=== PATIENT | female | born 1935 | race Caucasian/White ===

== ENCOUNTER 2017-11-18 14:22 | Emergency (ER) | payer MEDICARE, OTHER ==
[~2017-11-18] VITALS: Ht 162.6 cm; Wt 78.9 kg
[2017-11-18 15:34] LABS: CLARITY,URINE CLEAR (Clear); COLOR,URINE YELLOW (Yellow); GLUCOSE, URINE NEGATIVE (Neg); KETONES,URINE NEGATIVE (Neg); LEUKOCYTE ESTERASE ,URINE NEGATIVE (Neg); NITRITES, URINE NEGATIVE (Neg); OCCULT BLOOD,URINE SMALL (Neg); PROTEIN,URINE 100 mg/dl (Neg); UROBILINOGEN,URINE 0.2 E.U/dL (0.2-1.0)
[2017-11-18 15:49] LABS: UA COLLECTION TYPE CLN CATCH MIDSTREAM
[2017-11-18 15:50] LABS: BACTERIA,URINE NONE SEEN /HPF (Neg); MUCUS STRANDS NONE SEEN /LPF (Neg); RBC,URINE 0-2 /HPF (0-2); SQUAMOUS EPITHELIAL CELL,UR FEW /LPF (FEW)
[2017-11-18 16:55] LABS: BASOPHILS % (AUTO) 0 % (0-1); EOSINOPHILS # (AUTO) 0.2 X10'3 (0-0.9); EOSINOPHILS % (AUTO) 1.7 % (0-6); HEMATOCRIT 42.5 % (35.0-45.0); HEMOGLOBIN 13.9 g/dl (12.0-16.0); LYMPHOCYTES # (AUTO) 1.7 X10'3 (1.1-4.8); LYMPHOCYTES % (AUTO) 13.4 % (21-51); MEAN CORPUSCULAR HEMOGLOBIN 28.5 PG (27.0-31.0); MEAN CORPUSCULAR HGB CONC 32.7 % (33.0-36.5); MEAN CORPUSCULAR VOLUME 86.9 FL (78-98); MEAN PLATELET VOLUME 8.6 FL (7.4-10.4); MONOCYTES # (AUTO) 0.2 X10'3 (0-0.9); MONOCYTES % (AUTO) 1.8 % (2-12); NEUTROPHILS # (AUTO) 10.7 X10'3 (1.8-7.7); NEUTROPHILS % (AUTO) 83.1 % (42-75); PLATELET COUNT 295 X10'3 (140-440); RED BLOOD COUNT 4.89 X10'6 (4.20-5.60); RED CELL DISTRIBUTION WIDTH 14.4 % (11.5-14.5); WHITE BLOOD COUNT 12.8 X10'3 (4.5-11.0)
[2017-11-18 17:06] LABS: INR 0.9 INR; PARTIAL THROMBOPLASTIN TIME 24 SECONDS (22-32); PROTHROMBIN TIME 9.7 SECONDS (9.0-12.0)
[2017-11-18 17:10] LABS: ALANINE AMINOTRANSFERASE 30 U/L (12-78); ALBUMIN 3.8 G/DL (3.4-5.0); ALKALINE PHOSPHATASE 183 IU/L (46-116); ANION GAP 13 (8-16); ASPARTATE AMINO TRANSFERASE 16 U/L (10-37); BILIRUBIN,TOTAL 0.5 MG/DL (0.1-1.0); BLOOD UREA NITROGEN 35 MG/DL (7-18); BUN/CREATININE RATIO 19.8 (6.6-38.0); CALCIUM 9.4 MG/DL (8.5-10.1); CHLORIDE 106 MMOL/L (99-107); CREATININE 1.77 MG/DL (0.40-0.90); GLUCOSE 158 MG/DL (70-104); LIPASE 241 U/L (73-393); MAGNESIUM 1.8 MG/DL (1.5-2.4); POTASSIUM 4.8 MMOL/L (3.5-5.1); SODIUM 143 MMOL/L (135-145); TOTAL CARBON DIOXIDE 24.4 MMOL/L (24-32); TOTAL PROTEIN 7.6 G/DL (6.4-8.2); eGFR 28 ML/MIN
[2017-11-18] MEDS ORDERED: normal saline 1000ML IV soln IV ONE (19:40)
[2017-11-18 20:51] LABS: INR 0.9 INR; PARTIAL THROMBOPLASTIN TIME 24 SECONDS (22-32); PROTHROMBIN TIME 9.8 SECONDS (9.0-12.0)
[2017-11-18] MEDS: ondansetron/PF 4mg/2ml inj IV ONE ×2 (22:32→23:31)
[2017-11-18] MEDS ORDERED: BISA10SU60 RC (22:38)
[2017-11-18] MEDS ORDERED: MAGN296S50 PO (22:39)
[2017-11-18 23:32] VITALS: BP 133/73
== END 2017-11-18 23:35 | disposition home or self-care (01) ==
LOC: ER 14:23
DX: K59.00 Constipation, unspecified (principal); N13.2 Hydronephrosis with renal and ureteral calculous obstruction; N28.1 Cyst of kidney, acquired; K44.9 Diaphragmatic hernia without obstruction or gangrene; Z88.2 Allergy status to sulfonamides
CPT/HCPCS: 36415; 74176; 80053; 81001; 83605; 83690; 83735; 84145; 85025; 85610; 85730; 87040; 87088; 93005; 96361; 96374; 99285; J2405

== ENCOUNTER 2017-11-19 22:17 | Emergency (ER) | payer MEDICARE, OTHER ==
[~2017-11-19] VITALS: Ht 162.6 cm; Wt 82.7 kg
[~2017-11-19 22:17] MED LIST: BISA10SU60 RC; MAGN296S50 PO
[2017-11-19] MEDS ORDERED: bisacodyl 10mg suppository rectal RC ONE (23:40)
[2017-11-19] MEDS ORDERED: normal saline 1000ML IV soln IVB ONE (23:45)
[2017-11-20 03:09] VITALS: BP 136/64
[2017-11-20] MEDS ORDERED: normal saline 1000ML IV soln IVB ONE (04:05)
[2017-11-20] MEDS ORDERED: magnesium citrate 296ml oral solution PO ONE (04:05)
== END 2017-11-20 04:58 | disposition home or self-care (01) ==
LOC: ER 22:18
DX: K59.00 Constipation, unspecified (principal); I11.0 Hypertensive heart disease with heart failure; I50.9 Heart failure, unspecified; E11.9 Type 2 diabetes mellitus without complications; Z88.2 Allergy status to sulfonamides
CPT/HCPCS: 74018; 96360; 99284; J7030

== ENCOUNTER 2019-05-16 08:57 | Day surgery (SDC) | payer MEDICARE, OTHER ==
[2019-05-15 17:05] LABS: BASOPHILS % (AUTO) 0.2 % (0-1); EOSINOPHILS % (AUTO) 0.1 % (0-6); LYMPHOCYTES # (AUTO) 0.5 X10'3 (1.1-4.8); LYMPHOCYTES % (AUTO) 2.8 % (21-51); MEAN CORPUSCULAR HEMOGLOBIN 25.9 PG (27.0-31.0); MEAN CORPUSCULAR HGB CONC 31.1 g/dL (33.0-36.5); MEAN CORPUSCULAR VOLUME 83.2 FL (78-98); MEAN PLATELET VOLUME 8.7 FL (7.4-10.4); MONOCYTES # (AUTO) 0.3 X10'3 (0-0.9); MONOCYTES % (AUTO) 1.5 % (2-12); NEUTROPHILS # (AUTO) 17.1 X10'3 (1.8-7.7); NEUTROPHILS % (AUTO) 95.4 % (42-75); PRE OP HEMATOCRIT 36.3 % (35.0-45.0); PRE OP HEMOGLOBIN 11.3 g/dL (12.0-16.0); PRE OP PLATELET COUNT 297 X10'3 (140-440); RED BLOOD COUNT 4.37 X10'6 (4.20-5.60); RED CELL DISTRIBUTION WIDTH 17.2 % (11.5-14.5)
[2019-05-15 17:05] LABS: CLARITY,URINE CLOUDY (Clear); COLOR,URINE YELLOW (Yellow); GLUCOSE, URINE >=1000 mg/dl (Neg); KETONES,URINE NEGATIVE (Neg); LEUKOCYTE ESTERASE ,URINE SMALL (Neg); NITRITES, URINE NEGATIVE (Neg); OCCULT BLOOD,URINE LARGE (Neg); PROTEIN,URINE 30 mg/dl (Neg); UROBILINOGEN,URINE 0.2 E.U/dL (0.2-1.0)
[2019-05-15 17:18] LABS: ALBUMIN/GLOBULIN RATIO 0.9 (1.1-1.5); ALKALINE PHOSPHATASE 116 IU/L (46-116); BLOOD UREA NITROGEN 46 MG/DL (7-18); BUN/CREATININE RATIO 22.2 (6.6-38.0); CALCIUM 7.7 MG/DL (8.5-10.1); CHLORIDE 105 MMOL/L (99-107); CREATININE 2.07 MG/DL (0.40-0.90); PRE OP ALT 30 U/L (30-65); PRE OP ANION GAP 13 (8-16); PRE OP AST 10 U/L (10-37); PRE OP BILIRUB, TOTAL 0.3 MG/DL (0.0-1.0); PRE OP POTASSIUM 5.2 MMOL/L (3.4-5.1); PRE OP SODIUM 137 MMOL/L (135-145); TOTAL CARBON DIOXIDE 19.3 MMOL/L (24-32); TOTAL PROTEIN 6.2 G/DL (6.4-8.2); eGFR 23 ML/MIN
[2019-05-15 17:20] LABS: PRE OP GLUCOSE 443 MG/DL (70-104)
[2019-05-15 17:23] LABS: UA COLLECTION TYPE CLN CATCH MIDSTREAM
[2019-05-15 17:23] LABS: ANISOCYTOSIS 1+; PLATELET ESTIMATE NORMAL; TOTAL CELLS COUNTED 100
[2019-05-15 17:24] LABS: RBC,URINE 20-50 /HPF (0-2); WBC,URINE 20-30 /HPF (0-4)
[2019-05-15 17:25] LABS: BACTERIA,URINE 1+ /HPF (Neg); SQUAMOUS EPITHELIAL CELL,UR FEW /LPF (FEW)
[2019-05-15 17:26] LABS: HYALINE CASTS 0-3 /LPF (NEGATIVE)
[2019-05-15 17:27] LABS: WBC CLUMPS,URINE FEW /HPF (NEGATIVE)
[~2019-05-16] VITALS: Ht 162.6 cm; Wt 79.0 kg
[2019-05-16] VITALS (8 sets, daily range): BP systolic 136–155; BP diastolic 66–77
[~2019-05-16 08:57] MED LIST changes: +ALBU18HF2 INH; +AMLO5TAB16 PO; +ATOR40TA72 PO; -BISA10SU60 RC; +FLO44IN; +GLIP5TAB13 PO; +INSU100I8; +LANTUS SQ; +LIRA0.6P2 SQ; -MAGN296S50 PO; +MONT10TA24 PO; +PANT40TA4 PO; +PRED20TA PO; +UMEC1DIS INH
[2019-05-16] MEDS ORDERED: ringers solution, lacted 1,000 ML IV SCH ×2 (10:15→11:34)
[2019-05-16] MEDS ORDERED: cefazolin/dext.iso 2gm/100 ML IV ONE (10:15)
[2019-05-16] MEDS ORDERED: albuterol 2.5 MG/3 ML nebule NEB ONE (10:15)
[2019-05-16] MEDS ORDERED: famotidine 20mg tablet PO ONE (10:15)
[2019-05-16 10:50] LABS: ISTAT CREATININE 1.9 mg/dL (0.6-1.1); ISTAT HGB 11.9 g/dl (12.0-16.0); ISTAT IONIZED CALCIUM 1.25 mmol/L (1.03-1.32); ISTAT K 4.5 mmol/L (3.5-5.1); POC BUN/CREATININE RATIO 21.1 (6.6-38.0)
[2019-05-16] MEDS ORDERED: LIDOcaine 1% 30ml preserv. free vial ONE (11:06)
[2019-05-16] MEDS ORDERED: epiNEPHrine 1 mg/ml inj ONE (11:14)
[2019-05-16] MEDS ORDERED: labetalol 20mg/4ml (5mg/ml) syringe IV PRN (11:35)
[2019-05-16] MEDS ORDERED: ondansetron/PF 4mg/2ml inj IV PRN (11:35)
[2019-05-16] MEDS ORDERED: morphine 4 MG/ML inj SYRINge IV PRN ×2 (11:35)
[2019-05-16] MEDS ORDERED: fentaNYL/PF 50MCG/1 ML 2ML syringe IV PRN ×2 (11:35)
[2019-05-16] MEDS ORDERED: enalaprilat dihydrate 2.5mg/2ml vial IV PRN (11:35)
[2019-05-16] MEDS ORDERED: dexamethasone sod phosphate 10mg/ml inj ONE (11:49)
[2019-05-16] MEDS ORDERED: fentaNYL/PF 50MCG/1 ML 2ML syringe ONE (11:49)
[2019-05-16] MEDS ORDERED: labetalol 20mg/4ml (5mg/ml) syringe IV ONE (11:49)
[2019-05-16] MEDS ORDERED: sevoflurane 250ml liquid IH ONE (11:49)
[2019-05-16] MEDS ORDERED: midazolam 2 mg/2 ml injection ONE (11:49)
[2019-05-16] MEDS ORDERED: ondansetron/PF 4mg/2ml inj ONE (11:50)
[2019-05-16] MEDS ORDERED: etomidate 2mg/ml inj. ONE (11:50)
--- NOTE | 2019-05-16 12:40 | NUR ---
Received from OR via BED, accompanied by Anesthesiologist DR GENTILE-- and report given by Anesthesiolgist. PATIENT A&OX4, DENIES PAIN, V/S WNL, NEUROVASCULAR CHECKS INTACT, 20G PIV LUE, SCD ON, LEFT TEMPORAL DERMABONDED SITE CDI W/ NO S/S OF COMPLICATIONS
--- NOTE | 2019-05-16 13:20 | NUR ---
PATIENT A&OX4, DENIES PAIN, V/S WNL, NEUROVASCULAR CHECKS INTACT, 20G PIV LUE D/C, SCD OFF, LEFT TEMPORAL DERMABONDED SITE CDI W/ NO S/S OF COMPLICATIONS. I HAVE REVIEWED D/C INSTRUCTIONS WITH PATIENT AND FAMILY AND THEY HAVE VERBALIZED UNDERSTANDING. PATIENT D/C HOME WITH ALL BELONGINGS AND FAMILY GAVE TRANSPORT HOME.
== END 2019-05-16 13:20 | disposition home or self-care (01) ==
LOC: PAS 08:57
PROVIDERS: ATTEND Surgery
DX: R51 Headache (principal); J44.9 Chronic obstructive pulmonary disease, unspecified; E10.22 Type 1 diabetes mellitus with diabetic chronic kidney disease; N18.9 Chronic kidney disease, unspecified; Z98.41 Cataract extraction status, right eye; Z98.42 Cataract extraction status, left eye; Z90.49 Acquired absence of other specified parts of digestive tract; Z85.51 Personal history of malignant neoplasm of bladder; Z88.1 Allergy status to other antibiotic agents; Z88.2 Allergy status to sulfonamides; Z87.891 Personal history of nicotine dependence; Z79.4 Long term (current) use of insulin; Z79.899 Other long term (current) drug therapy
CPT/HCPCS: 36415; 37609; 80047; 80053; 81001; 82948; 85025; 87088; 93005; 94640; J0171; J2001; J2250; J2405; J3010; 88305; 88313; A4215; A4618; A6258; A7000; J1100; J3490; J7120